=== PATIENT | female | born 1990 | race Caucasian/White ===

== ENCOUNTER 2016-05-06 22:18 | Emergency (ER) | payer OTHER ==
[~2016-05-06] VITALS: Ht 154.9 cm; Wt 74.8 kg
[~2016-05-06 22:18] MED LIST: AZITHROMYCIN 2250 MG PO; CLARITIN10 M2 PO; HYDROXYZINE HCL50 MG PO; IBUPROFEN 600600 M1 PO; MACROBID 100 M100 M1 PO; NOHOMEMEDICATIONS; PEPCID PO; PEPCID40 MG PO; PREDNISONE 10 M10 M1
[2016-05-06] MEDS ORDERED: MOBIC15 MG PO (23:58)
[2016-05-07] VITALS: BP 120/84
== END 2016-05-07 | disposition home or self-care (01) ==
LOC: ER 22:18
DX: S93.692A Other sprain of left foot, initial encounter (principal); S33.5XXA Sprain of ligaments of lumbar spine, initial encounter; S09.8XXA Other specified injuries of head, initial encounter; J45.909 Unspecified asthma, uncomplicated; F17.210 Nicotine dependence, cigarettes, uncomplicated; W13.8XXA Fall from, out of or through other building or structure, initial encounter; Y93.89 Activity, other specified; Y92.098 Other place in other non-institutional residence as the place of occurrence of the external cause; Y99.8 Other external cause status

== ENCOUNTER 2016-05-24 18:03 | Emergency (ER) | payer OTHER ==
[~2016-05-24] VITALS: Ht 154.9 cm; Wt 74.8 kg
[~2016-05-24 18:03] MED LIST changes: +MOBIC15 MG PO
[2016-05-24 18:12] VITALS: BP 141/98
[2016-05-24] MEDS ORDERED: AMBIEN 5 MG TABL5 M1 PO (18:22)
== END 2016-05-24 18:39 | disposition home or self-care (01) ==
LOC: ER 18:03
DX: S06.0X9A Concussion with loss of consciousness of unspecified duration, initial encounter (principal); J45.909 Unspecified asthma, uncomplicated; W22.03XA Walked into furniture, initial encounter; Y93.89 Activity, other specified; Y92.89 Other specified places as the place of occurrence of the external cause; Y99.9 Unspecified external cause status

== ENCOUNTER 2016-11-20 18:57 | Emergency (ER) | payer OTHER ==
[~2016-11-20] VITALS: Ht 154.9 cm; Wt 74.8 kg
[~2016-11-20 18:57] MED LIST changes: +AMBIEN 5 MG TABL5 M1 PO
[2016-11-20 19:40] LABS: ABSOLUTE NEUTROPHILS 7.7 thou/uL (1.4-8.2); BASOPHILS 0.7 % (0.0-2.0); HEMATOCRIT 40.7 % (37.0-47.0); HEMOGLOBIN 13.5 gm/dL (12.0-15.0); LYMPHOCYTES 31.5 % (24.0-44.0); MANUAL DIFF NO; MCH 28.7 pg (26.0-34.0); MCHC 33.2 g/dL (28.0-37.0); MCV 86.4 fL (80.0-100.0); MONOCYTES 6.4 % (1.0-8.0); PLATELET COUNT 362 thou/uL (150-400); POLYS 60.4 % (36.0-66.0); RBC 4.71 mil/uL (4.20-5.00); WBC 12.8 thou/uL (4.0-11.0)
[2016-11-20 19:40] LABS: URINE BILIRUBIN NEGATIVE (Negative); URINE BLOOD NEGATIVE (Negative); URINE COLOR YELLOW; URINE GLUCOSE-RANDOM* NEGATIVE (Negative); URINE KETONES NEGATIVE (Negative); URINE LEUKOCYTES-REFLEX NEGATIVE (Negative); URINE PROTEIN (DIPSTICK) NEGATIVE (Negative); URINE UROBILINOGEN 0.2 E.U./dl (0.2-1.0)
[2016-11-20 19:46] LABS: CALCIUM 8.9 mg/dL (8.5-10.1); CREATININE 0.7 mg/dL (0.6-1.0); POTASSIUM 3.9 mmol/L (3.5-5.1)
[2016-11-20] MEDS ORDERED: NORCO 5-325 TA1 EACH PO (21:32)
[2016-11-20] MEDS ORDERED: ZOFRAN ODT4 MG PO (21:32)
[2016-11-20 21:43] VITALS: BP 94/45
== END 2016-11-20 21:51 | disposition home or self-care (01) ==
LOC: ER 18:57
PROVIDERS: Emergency Medicine
DX: R10.31 Right lower quadrant pain (principal); M54.5 Low back pain; J45.909 Unspecified asthma, uncomplicated; F17.210 Nicotine dependence, cigarettes, uncomplicated; F15.10 Other stimulant abuse, uncomplicated

== ENCOUNTER 2017-05-27 12:56 | Emergency (ER) | payer OTHER ==
[~2017-05-27] VITALS: Ht 154.9 cm; Wt 73.5 kg
[~2017-05-27 12:56] MED LIST changes: +NORCO 5-325 TA1 EACH PO; +ZOFRAN ODT4 MG PO
[2017-05-27] MEDS ORDERED: NAPROSYN500 MG PO (14:10)
[2017-05-27] MEDS ORDERED: AMOXICILLIN 50500 MG PO (14:10)
== END 2017-05-27 14:17 | disposition home or self-care (01) ==
LOC: ER 12:56
DX: H92.03 Otalgia, bilateral (principal); K13.79 Other lesions of oral mucosa; J45.909 Unspecified asthma, uncomplicated

== ENCOUNTER 2018-08-05 20:59 | Emergency (ER) | payer BC ==
[~2018-08-05] VITALS: Ht 154.9 cm; Wt 86.2 kg
[~2018-08-05 20:59] MED LIST changes: +AMOXICILLIN 50500 MG PO; +NAPROSYN500 MG PO
[2018-08-05 21:18] LABS: URINE BILIRUBIN NEGATIVE (Negative); URINE BLOOD TRACE (Negative); URINE CLARITY CLEAR; URINE COLOR YELLOW; URINE GLUCOSE-RANDOM* NEGATIVE (Negative); URINE KETONES NEGATIVE (Negative); URINE LEUKOCYTES-REFLEX NEGATIVE (Negative); URINE NITRITE-REFLEX NEGATIVE (Negative); URINE PROTEIN (DIPSTICK) NEGATIVE (Negative); URINE UROBILINOGEN 0.2 E.U./dl (0.2-1.0)
[2018-08-05 21:55] LABS: ABSOLUTE NEUTROPHILS 7.9 thou/uL (1.4-8.2); BASOPHILS 0.7 % (0.0-2.0); EOSINOPHILS 0.7 % (0.0-3.0); HEMATOCRIT 41.2 % (37.0-47.0); HEMOGLOBIN 13.7 gm/dL (12.0-15.0); LYMPHOCYTES 35.3 % (24.0-44.0); MCH 28.7 pg (26.0-34.0); MCHC 33.2 g/dL (28.0-37.0); MCV 86.4 fL (80.0-100.0); PLATELET COUNT 341 thou/uL (150-400); POLYS 57.3 % (36.0-66.0); RBC 4.77 mil/uL (4.20-5.00); RDW 13.8 % (10.5-14.5); WBC 13.8 thou/uL (4.0-11.0)
[2018-08-05 21:59] LABS: CALCIUM 9.1 mg/dL (8.5-10.1); CREATININE 0.8 mg/dL (0.6-1.0); POTASSIUM 3.5 mmol/L (3.5-5.1)
[2018-08-05] MEDS ORDERED: AZITHROMYCIN 2250 MG PO (22:42)
[2018-08-05] MEDS ORDERED: VENTOLIN HFA 1818 GM INH (22:42)
[2018-08-05] MEDS ORDERED: IBUPROFEN 400400 M2 PO (22:42)
[2018-08-05 22:54] LABS: BACTERIA None Seen /HPF (None Seen); CASTS None Seen /LPF (None Seen); CRYSTALS None Seen /LPF (None Seen); MUCUS None Seen strn/LPF (None Seen); SQUAMOUS 0-3 Few /LPF (0-3); URINE RBC 0-2 Rare /HPF (0-2); URINE WBC None Seen /HPF (0-5)
[2018-08-05 23:27] VITALS: BP 136/70
== END 2018-08-05 23:28 | disposition home or self-care (01) ==
LOC: ER 20:59
PROVIDERS: Physician Assistant; Student in an Organized Health Care Education/Training Program
DX: J18.9 Pneumonia, unspecified organism (principal); J45.909 Unspecified asthma, uncomplicated; F17.210 Nicotine dependence, cigarettes, uncomplicated

== ENCOUNTER 2018-09-26 22:52 | Emergency (ER) | payer BC ==
[~2018-09-26] VITALS: Ht 162.6 cm; Wt 86.2 kg
[~2018-09-26 22:52] MED LIST changes: +IBUPROFEN 400400 M2 PO; +VENTOLIN HFA 1818 GM INH
[2018-09-27] MEDS ORDERED: GABAPENTIN 100100 MG PO (00:46)
[2018-09-27 01:12] VITALS: BP 128/71
== END 2018-09-27 01:13 | disposition home or self-care (01) ==
LOC: ER 22:52
DX: M54.42 Lumbago with sciatica, left side (principal); J45.909 Unspecified asthma, uncomplicated; F17.210 Nicotine dependence, cigarettes, uncomplicated

== ENCOUNTER 2019-02-15 13:49 | Emergency (ER) | payer BC ==
[~2019-02-15] VITALS: Ht 154.9 cm; Wt 81.7 kg
[~2019-02-15 13:49] MED LIST changes: +GABAPENTIN 100100 MG PO
[2019-02-15] MEDS ORDERED: PENICILLIN V P500 MG PO (14:46)
[2019-02-15] MEDS ORDERED: CEPACOL SORE T1 EAC7 BUCCAL ×2 (14:46→14:51)
[2019-02-15 14:56] VITALS: BP 125/78
== END 2019-02-15 14:59 | disposition home or self-care (01) ==
LOC: ER 13:49
DX: J02.9 Acute pharyngitis, unspecified (principal); J45.909 Unspecified asthma, uncomplicated; F17.210 Nicotine dependence, cigarettes, uncomplicated

== ENCOUNTER 2020-02-16 15:10 | Emergency (ER) | payer BC ==
[~2020-02-16] VITALS: Ht 154.9 cm; Wt 81.7 kg
[~2020-02-16 15:10] MED LIST changes: +CEPACOL SORE T1 EAC7 BUCCAL; +PENICILLIN V P500 MG PO
[2020-02-16 15:54] LABS: ABSOLUTE NEUTROPHILS 6.6 thou/uL (1.4-8.2); BASOPHILS 1.1 % (0.0-2.0); EOSINOPHILS 1.1 % (0.0-3.0); HEMATOCRIT 41.4 % (37.0-47.0); HEMOGLOBIN 13.9 gm/dL (12.0-15.0); LYMPHOCYTES 29.8 % (24.0-44.0); MCHC 33.7 g/dL (28.0-37.0); MONOCYTES 6.1 % (1.0-8.0); PLATELET COUNT 412 thou/uL (150-400); POLYS 61.9 % (36.0-66.0); RBC 4.81 mil/uL (4.20-5.00); RDW 14.4 % (10.5-14.5); WBC 10.7 thou/uL (4.0-11.0)
[2020-02-16 16:03] LABS: CALCIUM 8.9 mg/dL (8.5-10.1); CREATININE 0.7 mg/dL (0.6-1.0); POTASSIUM 4.5 mmol/L (3.5-5.1)
[2020-02-16] MEDS ORDERED: AMOXICILLIN500 M1 PO (17:09)
[2020-02-16 17:27] VITALS: BP 114/80
== END 2020-02-16 17:28 | disposition home or self-care (01) ==
LOC: ER 15:10
PROVIDERS: Nurse Practitioner
DX: J02.9 Acute pharyngitis, unspecified (principal); J45.909 Unspecified asthma, uncomplicated; F17.210 Nicotine dependence, cigarettes, uncomplicated